=== PATIENT | female | born 1955 | race African-American/Black ===

== ENCOUNTER 2023-06-26 10:10 | Emergency (ER) | payer MEDICARE, OTHER ==
[~2023-06-26] VITALS: Ht 165.1 cm; Wt 68.9 kg
[2023-06-26] MEDS ORDERED: ALBU18HF2 INH (12:43)
[2023-06-26] MEDS ORDERED: QUET200T PO (12:43)
[2023-06-26] MEDS ORDERED: IBUP-1955 PO (12:43)
[2023-06-26] MEDS ORDERED: BENZ-13 PO (12:43)
[2023-06-26 12:59] VITALS: BP 142/83; TEMP 97.8; O2SAT 99
== END 2023-06-26 12:56 | disposition home or self-care (01) ==
LOC: ER 10:14
DX: Z76.0 Encounter for issue of repeat prescription (principal); J06.9 Acute upper respiratory infection, unspecified; R05.9 Cough, unspecified; R09.81 Nasal congestion; I10 Essential (primary) hypertension; F41.9 Anxiety disorder, unspecified; F32.A Depression, unspecified; Z88.8 Allergy status to other drugs, medicaments and biological substances

== ENCOUNTER 2023-07-08 04:43 | Emergency (ER) | payer MEDICARE, OTHER ==
[~2023-07-08] VITALS: Ht 165.1 cm; Wt 68.9 kg
[~2023-07-08 04:43] MED LIST: ALBU18HF2 INH; BENZ-13 PO; IBUP-1955 PO; QUET200T PO
[2023-07-08] MEDS ORDERED: QUET100T PO (06:16)
[2023-07-08] MEDS ORDERED: ALBU18HF2 INH (06:16)
[2023-07-08] MEDS ORDERED: AZIT250T13 PO (06:16)
[2023-07-08] MEDS ORDERED: PROM118S5 PO (06:16)
[2023-07-08 06:33] VITALS: BP 143/81; TEMP 98; O2SAT 98
== END 2023-07-08 06:33 | disposition home or self-care (01) ==
LOC: ER 04:46
DX: Z76.0 Encounter for issue of repeat prescription (principal); J40 Bronchitis, not specified as acute or chronic; F32.A Depression, unspecified; F41.9 Anxiety disorder, unspecified; Z98.890 Other specified postprocedural states; Z79.899 Other long term (current) drug therapy; Z88.5 Allergy status to narcotic agent

== ENCOUNTER 2023-07-11 09:19 | Emergency (ER) | payer MEDICARE, OTHER ==
[~2023-07-11] VITALS: Ht 165.1 cm; Wt 68.9 kg
[~2023-07-11 09:19] MED LIST changes: +AZIT250T13 PO; +PROM118S5 PO; +QUET100T PO
[2023-07-11] MEDS ORDERED: QUET200T PO ×3 (09:44→09:57)
[2023-07-11] MEDS ORDERED: GUAI100S69 PO ×2 (09:53→09:57)
[2023-07-11 10:08] VITALS: BP 120/86; TEMP 97.8; O2SAT 98
== END 2023-07-11 10:09 | disposition home or self-care (01) ==
LOC: ER 09:49
DX: R05.9 Cough, unspecified (principal); Z76.0 Encounter for issue of repeat prescription; J40 Bronchitis, not specified as acute or chronic; F32.A Depression, unspecified; F41.9 Anxiety disorder, unspecified; Z98.890 Other specified postprocedural states; Z79.899 Other long term (current) drug therapy; Z88.5 Allergy status to narcotic agent

== ENCOUNTER 2023-09-02 06:10 | Emergency (ER) | payer MEDICARE, OTHER ==
[~2023-09-02] VITALS: Ht 165.1 cm; Wt 75.3 kg
[~2023-09-02 06:10] MED LIST changes: +GUAI100S69 PO
[2023-09-02 07:25] VITALS: BP 132/72; TEMP 98.7; O2SAT 100
== END 2023-09-02 08:13 | disposition home or self-care (01) ==
LOC: ER 06:15
DX: F20.9 Schizophrenia, unspecified (principal); Z76.0 Encounter for issue of repeat prescription; F32.A Depression, unspecified; F41.9 Anxiety disorder, unspecified; Z88.8 Allergy status to other drugs, medicaments and biological substances

== ENCOUNTER 2023-09-06 09:57 | Emergency (ER) | payer MEDICARE, OTHER ==
[~2023-09-06] VITALS: Ht 165.1 cm; Wt 70.8 kg
[2023-09-06] MEDS ORDERED: KETOROLAC TROMETHAMINE INJ 30 MG/ML VIAL ONE (10:58)
[2023-09-06] MEDS ORDERED: CYCLOBENZAPRINE 10 MG TABLET ONE (10:59)
[2023-09-06] MEDS: KETOROLAC TROMETHAMINE INJ 30 MG/ML VIAL IM ONE (11:00)
[2023-09-06] MEDS: CYCLOBENZAPRINE 10 MG TABLET PO ONE (11:00)
[2023-09-06] MEDS ORDERED: KETO10TA2 PO (11:09)
[2023-09-06] MEDS ORDERED: CYCL5TAB PO (11:09)
[2023-09-06 11:57] VITALS: BP 130/70; TEMP 98.2; O2SAT 98
== END 2023-09-06 11:58 | disposition home or self-care (01) ==
LOC: ER 09:57
DX: M94.0 Chondrocostal junction syndrome [Tietze] (principal); F32.A Depression, unspecified; F41.9 Anxiety disorder, unspecified; Z88.8 Allergy status to other drugs, medicaments and biological substances; Z90.89 Acquired absence of other organs
CPT/HCPCS: 99283; 96372; J1885

== ENCOUNTER 2023-10-05 05:01 | Emergency (ER) | payer MEDICARE, OTHER ==
[~2023-10-05] VITALS: Ht 165.1 cm; Wt 69.9 kg
[~2023-10-05 05:01] MED LIST changes: +CYCL5TAB PO; +KETO10TA2 PO
[2023-10-05] MEDS ORDERED: KETOROLAC TROMETHAMINE 15 MG/ML VIAL ONE (07:02)
[2023-10-05] MEDS: KETOROLAC TROMETHAMINE 15 MG/ML VIAL IM ONE (07:03)
[2023-10-05 07:12] VITALS: BP 116/74; TEMP 98.1; O2SAT 98
== END 2023-10-05 07:13 | disposition home or self-care (01) ==
LOC: ER 05:04
DX: M25.522 Pain in left elbow (principal); I10 Essential (primary) hypertension; F32.A Depression, unspecified; F41.9 Anxiety disorder, unspecified; Z79.899 Other long term (current) drug therapy
CPT/HCPCS: 99284; 71045; 96372; 93005 ×2; 73080; J1885

== ENCOUNTER 2024-07-15 11:36 | Emergency (ER) | payer MEDICARE, OTHER ==
[~2024-07-15] VITALS: Ht 165.1 cm; Wt 77.1 kg
[2024-07-15 11:48] VITALS: BP 152/76; TEMP 97.8; O2SAT 100
[2024-07-15] MEDS ORDERED: QUET200T PO (12:42)
== END 2024-07-15 13:15 | disposition home or self-care (01) ==
LOC: ER 11:42
DX: F20.9 Schizophrenia, unspecified (principal); I10 Essential (primary) hypertension; F32.A Depression, unspecified; F41.9 Anxiety disorder, unspecified; F19.10 Other psychoactive substance abuse, uncomplicated; Z76.0 Encounter for issue of repeat prescription; Z79.899 Other long term (current) drug therapy; Z90.710 Acquired absence of both cervix and uterus; Z87.09 Personal history of other diseases of the respiratory system; Z60.2 Problems related to living alone

== ENCOUNTER 2025-05-05 10:48 | Emergency (ER) | payer MEDICARE, OTHER ==
[~2025-05-05] VITALS: Ht 165.1 cm; Wt 77.1 kg
[2025-05-05 11:17] VITALS: TEMP 98.1
[2025-05-05] MEDS ORDERED: HYDROCODONE/APAP 5/325MG TABLET ONE (11:43)
[2025-05-05] MEDS: HYDROCODONE/APAP 5/325MG TABLET PO ONE (11:49)
[2025-05-05] MEDS ORDERED: HYDR-4209 PO ×2 (13:35→14:10)
[2025-05-05 14:22] VITALS: BP 139/81; O2SAT 98
== END 2025-05-05 14:23 | disposition home or self-care (01) ==
LOC: ER 10:50
DX: S92.311A Displaced fracture of first metatarsal bone, right foot, initial encounter for closed fracture (principal); S92.341A Displaced fracture of fourth metatarsal bone, right foot, initial encounter for closed fracture; I10 Essential (primary) hypertension; F31.9 Bipolar disorder, unspecified; Z79.899 Other long term (current) drug therapy; Z86.19 Personal history of other infectious and parasitic diseases; Z90.710 Acquired absence of both cervix and uterus; W01.0XXA Fall on same level from slipping, tripping and stumbling without subsequent striking against object, initial encounter; Y93.89 Activity, other specified; Y92.89 Other specified places as the place of occurrence of the external cause; Y99.8 Other external cause status
CPT/HCPCS: 73630-TC

== ENCOUNTER 2025-05-09 11:01 | Emergency (ER) | payer MEDICARE, OTHER ==
[~2025-05-09] VITALS: Ht 165.1 cm; Wt 77.1 kg
[~2025-05-09 11:01] MED LIST changes: +HYDR-4209 PO
[2025-05-09 11:06] VITALS: BP 108/69; TEMP 97.9
[2025-05-09] MEDS ORDERED: TRAM50TA2 PO (11:59)
[2025-05-09 12:45] VITALS: O2SAT 98
== END 2025-05-09 12:45 | disposition home or self-care (01) ==
LOC: ER 11:08
DX: I10 Essential (primary) hypertension (principal); F31.9 Bipolar disorder, unspecified; Z79.899 Other long term (current) drug therapy; Z86.19 Personal history of other infectious and parasitic diseases; Z90.710 Acquired absence of both cervix and uterus; Z60.2 Problems related to living alone; S92.301A Fracture of unspecified metatarsal bone(s), right foot, initial encounter for closed fracture; X58.XXXA Exposure to other specified factors, initial encounter; Y93.89 Activity, other specified; Y92.89 Other specified places as the place of occurrence of the external cause; Y99.9 Unspecified external cause status